=== PATIENT | female | born 1990 | race Caucasian/White ===

== ENCOUNTER 2021-09-03 11:24 | Inpatient (IN) | payer MEDICAID ==
[2021-09-03] MEDS ORDERED: fentaNYL 50 MCG/ML SDV IVPUSH ONE (23:53)
[2021-09-04] MEDS ORDERED: Sodium Chloride 0.9% 10 ML Syringe FLUSH PRN (00:01)
[2021-09-04 00:17] LABS: ESTIMATED GFR 122 mL/min (>60)
[2021-09-04] MEDS ORDERED: Ondansetron 4 MG Tab.DIS PO PRN ×2 (00:27→01:11)
[2021-09-04] MEDS: Lactated Ringers 1,000 ML IV SCH ×3 (00:48→13:41)
[2021-09-04] MEDS: Ondansetron 4 MG/2 ML SDV IV PRN ×3 (00:48→12:00)
[2021-09-04] MEDS: fentaNYL 50 MCG/ML SDV IVPUSH PRN ×5 (01:30→10:00)
[2021-09-04] MEDS ORDERED: Lidocaine 1% 50 ML MDV INJECT ONE (06:00)
[2021-09-04 08:58] LABS: CORONAVIRUS COVID-19 NAA NEGATIVE (NEGATIVE)
[2021-09-04] MEDS ORDERED: Lactated Ringers 1,000 ML IV ONE (11:44)
[2021-09-04] MEDS ORDERED: ePHEDrine 50 MG/ML SDV ONE ×2 (11:50→18:00)
[2021-09-04] MEDS ORDERED: Ropivacaine 100 ML ONE (12:25)
[2021-09-04] MEDS: ePHEDrine 50 MG/ML SDV IVPUSH PRN ×6 (13:25→17:29)
[2021-09-04] MEDS ORDERED: Bupivacaine 0.5% 30 ML SDV ONE (18:00)
[2021-09-04] MEDS ORDERED: Phenylephrine 1% 10 MG/ML SDV ONE (18:00)
[2021-09-04] MEDS ORDERED: Sodium Chloride 0.9% 20 ML ONE (18:00)
[2021-09-04] MEDS ORDERED: Ondansetron 4 MG/2 ML SDV ONE (18:00)
[2021-09-04] MEDS ORDERED: Tranexamic Acid 1,000 MG in Sodium Chloride 0.9% 100 ML IV ONE (18:03)
[2021-09-04] MEDS ORDERED: ceFAZolin 2 GM in Premix Bag 1 BAG IV ONE (18:10)
[2021-09-04] MEDS ORDERED: Misoprostol 200 MCG Tab RECTAL ONE (18:30)
[2021-09-04] MEDS ORDERED: Azithromycin 500 MG in Sodium Chloride 0.9% 250 ML IV SCH (18:30)
[2021-09-04] MEDS ORDERED: Tranexamic Acid 1,000 MG in Sodium Chloride 0.9% 50 ML IV ONE (18:30)
[2021-09-04] MEDS ORDERED: Sodium Chloride 0.9% 10 ML ONE (19:12)
[2021-09-04] MEDS ORDERED: Morphine PF 10 MG/10 ML SDV ONE (19:12)
[2021-09-04] MEDS ORDERED: ePHEDrine 50 MG/ML SDV IV PRN (20:11)
[2021-09-04] MEDS ORDERED: Promethazine 12.5 MG in Sodium Chloride 0.9% 50 ML IV PRN (20:16)
[2021-09-04] MEDS ORDERED: Morphine PF 10 MG/10 ML SDV EPIDUR PRN (21:00)
[2021-09-04] MEDS ORDERED: diphenhydrAMINE 50 MG/ML SDV IVPUSH PRN ×2 (21:00)
[2021-09-05] MEDS ORDERED: Morphine PF 10 MG/10 ML SDV ONE (08:11)
[2021-09-05] MEDS ORDERED: Sodium Chloride 0.9% 10 ML ONE (08:11)
[2021-09-05] MEDS ORDERED: Acetaminophen 500 MG Tab PO PRN (09:17)
[2021-09-06] MEDS: Ibuprofen 600 MG Tab PO PRN ×3 (07:38→20:42)
[2021-09-06] MEDS: Acetaminophen/HYDROcodone 325-5 MG Tab PO PRN ×2 (09:42→21:57)
[2021-09-06] MEDS: Docusate Sodium 100 MG Cap PO SCH ×2 (16:07→20:42)
[2021-09-07] MEDS: Acetaminophen/HYDROcodone 325-5 MG Tab PO PRN (07:41)
[2021-09-07] MEDS: Docusate Sodium 100 MG Cap PO SCH (10:12)
[2021-09-07] MEDS ORDERED: Lanolin 100% Cream 40 GM Tube TOP PRN (10:18)
== END 2021-09-07 10:54 | disposition home or self-care (01) | DRG 788 ==
LOC: JP.OBCHECK 11:24 → JP.OB 09-04 00:02 → JP.MS 09-04 07:42 → OBSVTOIN 09-04 19:03
PROVIDERS: ADMIT Obstetrics & Gynecology; ATTEND Obstetrics & Gynecology
PROC: 10D00Z1 Extraction of Products of Conception, Low, Open Approach (ICD-10-PCS; principal; 2021-09-04)
PROC: 10907ZC Drainage of Amniotic Fluid, Therapeutic from Products of Conception, Via Natural or Artificial Opening (ICD-10-PCS; 2021-09-04)
DX: O48.0 Post-term pregnancy (principal); Z3A.40 40 weeks gestation of pregnancy; Z37.0 Single live birth; O77.0 Labor and delivery complicated by meconium in amniotic fluid; O62.2 Other uterine inertia; O69.81X0 Labor and delivery complicated by cord around neck, without compression, not applicable or unspecified; O76 Abnormality in fetal heart rate and rhythm complicating labor and delivery; Z20.822 Contact with and (suspected) exposure to COVID-19
CPT/HCPCS: 0241U; 36415; 51702; 80053; 80305-QW; 82248; 83615; 85025; 86850; 86900; 86901; 99211; A9270-GY; J0456; J0690; J2274; J2370; J2405; J2590; J2795; J3010; J3490; J7050; J7120; Q0162